=== PATIENT | male | born 1960 | race Caucasian/White ===

== ENCOUNTER 2016-09-25 17:06 | Inpatient (IN) | payer OTHER ==
[~2016-09-25] VITALS: Ht 170.2 cm; Wt 118.6 kg
[2016-09-25] VITALS (7 sets, daily range): BP systolic 140–165; BP diastolic 77–106
--- NOTE | ~2016-09-25 | CON ---
[place], [place] REPORT OF CONSULTATION NAME: CHRISTOFER GIRON UNIT #: [id number] ROOM: [facility] DOCTOR: HERNAN BROWN MD BIRTHDATE: [birth year] DOS: 09/26/2016 HISTORY OF PRESENT ILLNESS: A 56-year-old patient who has presented with chief complaint of epigastric abdominal pain, complaining that he saw some blood in the stool, not feeling well. He was nearly passing out that afternoon and said he had diarrhea, dark tarry stool. The patient had to be admitted for definitive assessment. Through this Emergency system, he was assessed and a panel of blood work was done. INR was 1.3, PT 13. CBC differential white blood cells 7, H and H of 11 and 34, microcytic indices. Electrolytes balanced. Magnesium 1.2 has been addressed. Bilirubin 1.2. AST of 68, ALT of 30. Chest x-ray was no acute process. H and H was reassessed at 10 and 29 and on further reassessment, dropped to 9 and 27. So obviously he has been having some degree of bleeding with thrombocytopenia up to 70. His comprehensive metabolic panel otherwise reassessed. PAST MEDICAL HISTORY: Associated with hepatitis C, alcohol dependency, proteinuria, cocaine abuse, recreational drugs. PAST SURGICAL HISTORY: Colon resection, laparotomy, right leg herniorraphy and eye correction on the right side. SOCIAL HISTORY: Smoker and alcohol consumer and recreational drug use. FAMILY HISTORY: Noncontributory, associated coronary artery disease, diabetes, and hypertension. REVIEW OF SYSTEMS: HEENT: Denies double vision, blurred vision. RESPIRATORY: Denies acute shortness of breath. CARDIOVASCULAR: Denies acute chest pain. DIGESTIVE SYSTEM: Abdominal cramps, black tarry stool. PHYSICAL EXAMINATION: VITAL SIGNS: Stable. HEENT: Benign. Right eye appears to be narrower in angulation in the lateral angle of it. Mouth and buccal mucosa benign. NECK: Supple, no thyromegaly, no cervical lymphadenopathy. CHEST: Symmetric anatomy, equal expansion. No wheeze, no rhonchi. HEART: Normal sinus rhythm, no gallop, no murmur. ABDOMEN: Obese, large, soft. No hepato-organomegaly. Bowel sounds present. EXTREMITIES: No cyanosis. No pedal edema. NEUROLOGIC: Alert, oriented to time, place, person. IMPRESSION: Black tarry stool, history of hepatitis C, alcoholic liver disease, recreational drugs history. Other adjunctive diagnoses as outlined in paragraph of past medical, surgical history, anemia, drop in H and H, thrombocytopenia, abnormal liver function tests all has been recognized. PLAN AND DISCUSSION: We are going to organize an EGD. [place], [place] REPORT OF CONSULTATION NAME: CHRISTOFER GIRON UNIT #: [id number] ROOM: [facility] DOCTOR: HERNAN BROWN MD BIRTHDATE: [birth year] Laboratories reviewed. Records reviewed. Data reviewed. HERNAN BROWN MD CM:CONSTR:REPORT OF CONSULTATION 1650 11/09/16 0951 interface
--- NOTE | ~2016-09-25 | O ---
[place], [place] OPERATIVE NOTE NAME: CHRISTOFER GIRON UNIT #: [id number] ROOM: [facility] DOCTOR: KEVIN LEMOS,HERNAN BIRTHDATE: [birth year] DOS: 09/26/2016 INDICATIONS: A 56-year-old patient who was presented with chief complaint of black tarry stool, undergoing investigation. The patient with a history of hepatitis C, history of recreational drugs, history of alcohol. PROCEDURE: Today's procedure part of investigation is panendoscopy plus biopsy. PREMEDICATION: Versed and Diprivan. SCOPE: Olympus forward-viewing gastroscope Q10 video. REPORT: After putting the patient in the left lateral position and after application of lubricant to the scope, the scope was introduced. Thereafter, under direct visualization, I advanced through the length of esophagus without difficulty. Distal esophagitis, small hiatal hernia noticed. Gastric pouch was entered. Gastritis seen. Duodenal bulb gastritis seen. Multi antral ulcers were noticed, some are very deeply punctated. Biopsy from margin of 1 was obtained. Duodenitis noted. The patient extubated, tolerated the procedure well. IMPRESSION: Multiple antral ulcerations, small hiatal hernia, gastritis, duodenitis. PLAN AND DISCUSSION: Regular diet, Protonix 40 mg daily and clinical reassessment. Thank you very much indeed. HERNAN BROWN MD CM:OPRECORD:OPERATIVE NOTE 1833 HERNAN BROWN MD 09/26/16 2238 interface
[~2016-09-25 17:06] MED LIST: AMBIEN10 M1 PO; ATIVAN1 MG PO; BACTRIM DS 8001 TA1 PO; BLOOD PRESSURE MED; CELEXA10 MG PO; FLOMAX0.4 MG PO; GEODON20 MG PO; HYDROCHLOROTH12.5 M1 PO; IBU800 M1 PO; ISOSORBIDE MONO60 MG PO; KEFLEX500 MG PO; LEVAQUIN750 MG PO; LISINOPRIL AND1 TA2 PO; LISINOPRIL/HCTZ1 TA3 PO; LISINOPRIL10 MG PO; LISINOPRIL20 MG PO; METOPROLOL SR50 MG PO; MIRTAZAPINE15 M2 PO; MOTRIN600 MG PO; NASCOBAL500 MCG/01 NAS; NKHM; OLANZAPINE7.5 M1 PO; PROAIR HFA8.5 GM INH; TRAZODO50 MG PO; VICODIN 5/500 505 MG PO; VISTARIL25 M1 PO; VITAMIN D50000 I3 PO; ZYVOX600 MG PO; Zostrix 0.1% T
[2016-09-25 18:03] LABS: HEMOGLOBIN 11.5 g/dl (14.0-18.0); MEAN CELL VOLUME 113.3 fl (80.0-94.0); MEAN CORPUSCULAR HGB 38.3 pg (27.0-31.0); MEAN CORPUSCULAR HGB CONC 33.8 g/dl (33.0-37.0); MEAN PLATELET VOLUME 10.5 fl (9.6-12.3); PLATELET COUNT AUTOMATED 94 10*3/uL (130-400); WHITE BLOOD COUNT 7.7 10*3/uL (4.8-10.8)
[2016-09-25 18:18] LABS: INTERNATIONAL NORM RATIO 1.3 (2.0-3.5); PROTHROMBIN TIME 13.8 SECONDS (9.0-12.4)
[2016-09-25 18:21] LABS: ALBUMIN 3.4 gm/dl (3.1-4.5); ALKALINE PHOSPHATASE 77 U/L (45-117); BILIRUBIN, TOTAL 1.2 mg/dl (0.2-1.0); BUN 26 mg/dl (7-24); CARBON DIOXIDE 25 mmol/L (21-32); CHLORIDE 102 mmol/L (98-107); EST GLOM FILT AFRICAN AMERICAN > 60 ml/min; GLUCOSE 125 mg/dL (65-99); MAGNESIUM 1.2 mg/dL (1.5-2.1); SGOT/AST 68 IU/L (3-35); SGPT/ALT 30 U/L (12-78); SODIUM 141 mmol/L (136-145); TOTAL PROTEIN 8.1 gm/dL (6.4-8.2); TROPONIN I 0.036 ng/ml (<0.5)
[2016-09-25 18:22] LABS: LYMPHOCYTE # 0.5 10*3/uL (1.3-4.4); MONOCYTE # 0.2 10*3/uL (0.1-1.0); NEUTROPHIL # 7.1 10*3/uL (2.3-7.9); NEUTROPHILS 92 % (47-73); TOTAL CELLS COUNTED 100 #CELLS
[2016-09-25 18:23] LABS: PLATELET SUFFICIENCY LOW (NORMAL)
[2016-09-26] VITALS (7 sets, daily range): BP systolic 95–138; BP diastolic 61–98
[2016-09-26 00:18] LABS: HEMATOCRIT 29.7 % (42.0-52.0); HEMOGLOBIN 10.1 g/dl (14.0-18.0)
[2016-09-26 00:35] LABS: CKMB 4.8 ng/ml (0.5-3.6); TROPONIN I 0.055 ng/ml (<0.5)
[2016-09-26 05:25] LABS: BILIRUBIN NEGATIVE (NEGATIVE); BLOOD 2+ (NEGATIVE); CLARITY SL CLOUDY (CLEAR); COLOR YELLOW (YELLOW); GLUCOSE NEGATIVE (NEGATIVE); KETONE TRACE (NEGATIVE); LEUKO ESTERASE NEGATIVE (NEGATIVE); NITRITE NEGATIVE (NEGATIVE); PROTEIN 1+ (NEGATIVE); SPECIFIC GRAVITY 1.015 (1.005-1.030); UROBILINOGEN 0.2 E.U./dl (0.2-1.0)
[2016-09-26 05:35] LABS: RBC 51-100 rbc/hpf (0-2)
[2016-09-26 05:36] LABS: BACTERIA 2+; URINE REFLEX COMMENT YES (NO)
[2016-09-26 06:33] LABS: HEMATOCRIT 27.2 % (42.0-52.0); HEMOGLOBIN 9.3 g/dl (14.0-18.0); MEAN CELL VOLUME 113.8 fl (80.0-94.0); MEAN CORPUSCULAR HGB 38.9 pg (27.0-31.0); MEAN CORPUSCULAR HGB CONC 34.2 g/dl (33.0-37.0); MEAN PLATELET VOLUME 10.8 fl (9.6-12.3); PLATELET COUNT AUTOMATED 70 10*3/uL (130-400); RED BLOOD COUNT 2.39 10*6/uL (4.50-5.90); RED CELL DISTRI WIDTH 16.6 % (0-14.5); WHITE BLOOD COUNT 5.8 10*3/uL (4.8-10.8)
[2016-09-26 06:37] LABS: CKMB 4.1 ng/ml (0.5-3.6); TROPONIN I 0.048 ng/ml (<0.5)
[2016-09-26 06:53] LABS: INTERNATIONAL NORM RATIO 1.3 (2.0-3.5); PROTHROMBIN TIME 13.8 SECONDS (9.0-12.4)
[2016-09-26 07:10] LABS: ALBUMIN 2.9 gm/dl (3.1-4.5); ALKALINE PHOSPHATASE 59 U/L (45-117); BILIRUBIN, TOTAL 1.1 mg/dl (0.2-1.0); BUN 32 mg/dl (7-24); CARBON DIOXIDE 28 mmol/L (21-32); CHLORIDE 106 mmol/L (98-107); CHOLESTEROL 104 mg/dL (<200); EST GLOM FILT AFRICAN AMERICAN > 60 ml/min; FREE T4 0.82 ng/dl (0.76-1.46); GLUCOSE 87 mg/dL (65-99); HDL CHOLESTEROL 59 mg/dl (40-60); LDL CHOLESTEROL 33 mg/dL (9-159); MAGNESIUM 1.9 mg/dL (1.5-2.1); PHOSPHOROUS 1.6 mg/dL (2.5-4.9); POTASSIUM 4.3 mmol/L (3.5-5.1); SGOT/AST 59 IU/L (3-35); SGPT/ALT 25 U/L (12-78); SODIUM 142 mmol/L (136-145); THYROID STIM HORMONE (HS) 0.644 uIU/ml (0.358-4.75); TOTAL PROTEIN 6.9 gm/dL (6.4-8.2); TRIGLYCERIDES 61 mg/dl (<150); VLDL CHOLESTEROL 12 mg/dL (6-40)
[2016-09-26 07:12] LABS: HEMOGLOBIN A1c 4.4 % (4.8-5.6)
[2016-09-26 07:23] LABS: BASOPHIL # 0.1 10*3/uL (0-0.1); BASOPHILS 2 % (0-1); LYMPHOCYTE # 0.8 10*3/uL (1.3-4.4); MONOCYTE # 0.2 10*3/uL (0.1-1.0); NEUTROPHIL # 4.8 10*3/uL (2.3-7.9); NEUTROPHILS 82 % (47-73); TOTAL CELLS COUNTED 100 #CELLS
[2016-09-26 07:24] LABS: PLATELET SUFFICIENCY LOW (NORMAL); POLYCHROMASIA SLIGHT
[2016-09-26 08:43] LABS: FOLIC ACID 2.6 ng/mL (>5.38)
[2016-09-26 12:06] LABS: CKMB 3.2 ng/ml (0.5-3.6); TROPONIN I 0.041 ng/ml (<0.5)
[2016-09-27] VITALS: BP 130/84
[2016-09-27 04:00] VITALS: BP 145/91
[2016-09-27 04:28] LABS: HEMATOCRIT 25.3 % (42.0-52.0); HEMOGLOBIN 8.5 g/dl (14.0-18.0); MEAN CORPUSCULAR HGB 38.6 pg (27.0-31.0); MEAN CORPUSCULAR HGB CONC 33.6 g/dl (33.0-37.0); MEAN PLATELET VOLUME 10.5 fl (9.6-12.3); PLATELET COUNT AUTOMATED 70 10*3/uL (130-400); RED CELL DISTRI WIDTH 16.9 % (0-14.5); WHITE BLOOD COUNT 6.1 10*3/uL (4.8-10.8)
[2016-09-27 04:37] LABS: INTERNATIONAL NORM RATIO 1.3 (2.0-3.5); PROTHROMBIN TIME 13.6 SECONDS (9.0-12.4)
[2016-09-27 04:40] LABS: BUN 23 mg/dl (7-24); CARBON DIOXIDE 28 mmol/L (21-32); CHLORIDE 106 mmol/L (98-107); EST GLOM FILT AFRICAN AMERICAN > 60 ml/min; GLUCOSE 83 mg/dL (65-99); POTASSIUM 4.2 mmol/L (3.5-5.1); SODIUM 142 mmol/L (136-145)
[2016-09-27 04:50] LABS: EOSINOPHIL # 0.1 10*3/uL (0-0.4); EOSINOPHILS 1 % (1-4); LYMPHOCYTE # 1.5 10*3/uL (1.3-4.4); MONOCYTE # 0.1 10*3/uL (0.1-1.0); NEUTROPHIL # 4.5 10*3/uL (2.3-7.9); NEUTROPHILS 74 % (47-73); PLATELET SUFFICIENCY LOW (NORMAL); TOTAL CELLS COUNTED 100 #CELLS
[2016-09-27 04:51] LABS: POLYCHROMASIA SLIGHT
[2016-09-27 08:00] VITALS: BP 134/90
[2016-09-27 12:00] VITALS: BP 142/87
[2016-09-27 16:00] VITALS: BP 115/81
[2016-09-27 20:00] VITALS: BP 139/86
[2016-09-28] VITALS: BP 116/79
[2016-09-28 04:00] VITALS: BP 131/83
[2016-09-28 05:54] LABS: BUN 15 mg/dl (7-24); CARBON DIOXIDE 27 mmol/L (21-32); CHLORIDE 103 mmol/L (98-107); EST GLOM FILT AFRICAN AMERICAN > 60 ml/min; GLUCOSE 89 mg/dL (65-99); POTASSIUM 3.7 mmol/L (3.5-5.1); SODIUM 138 mmol/L (136-145)
[2016-09-28 06:04] LABS: HEMOGLOBIN 8.1 g/dl (14.0-18.0); MEAN CELL VOLUME 113.7 fl (80.0-94.0); MEAN CORPUSCULAR HGB 38.4 pg (27.0-31.0); MEAN CORPUSCULAR HGB CONC 33.8 g/dl (33.0-37.0); MEAN PLATELET VOLUME 11.1 fl (9.6-12.3); PLATELET COUNT AUTOMATED 69 10*3/uL (130-400); RED BLOOD COUNT 2.11 10*6/uL (4.50-5.90); RED CELL DISTRI WIDTH 16.1 % (0-14.5); WHITE BLOOD COUNT 5.5 10*3/uL (4.8-10.8)
[2016-09-28 06:24] LABS: INTERNATIONAL NORM RATIO 1.2 (2.0-3.5); PROTHROMBIN TIME 12.6 SECONDS (9.0-12.4)
[2016-09-28 07:42] LABS: EOSINOPHIL # 0.1 10*3/uL (0-0.4); EOSINOPHILS 1 % (1-4); LYMPHOCYTE # 1.2 10*3/uL (1.3-4.4); MONOCYTE # 0.1 10*3/uL (0.1-1.0); NEUTROPHIL # 4.2 10*3/uL (2.3-7.9); NEUTROPHILS 77 % (47-73); PLATELET SUFFICIENCY LOW (NORMAL); POLYCHROMASIA SLIGHT; TOTAL CELLS COUNTED 100 #CELLS
[2016-09-28 08:00] VITALS: BP 141/86
[2016-09-28 08:17] LABS: HEPATITIS C VIRUS ANTIBODY >11.0 s/co (0.0-0.9)
[2016-09-28 12:00] VITALS: BP 124/79
[2016-09-28 16:00] VITALS: BP 124/79
[2016-09-29] VITALS: BP 126/76
[2016-09-29 05:20] LABS: HEMATOCRIT 24.5 % (42.0-52.0); HEMOGLOBIN 8.5 g/dl (14.0-18.0); MEAN CELL VOLUME 112.9 fl (80.0-94.0); MEAN CORPUSCULAR HGB 39.2 pg (27.0-31.0); MEAN CORPUSCULAR HGB CONC 34.7 g/dl (33.0-37.0); MEAN PLATELET VOLUME 11.4 fl (9.6-12.3); PLATELET COUNT AUTOMATED 79 10*3/uL (130-400); RED BLOOD COUNT 2.17 10*6/uL (4.50-5.90); RED CELL DISTRI WIDTH 15.7 % (0-14.5); WHITE BLOOD COUNT 5.1 10*3/uL (4.8-10.8)
[2016-09-29 05:49] LABS: BUN 13 mg/dl (7-24); CARBON DIOXIDE 26 mmol/L (21-32); CHLORIDE 99 mmol/L (98-107); EST GLOM FILT AFRICAN AMERICAN > 60 ml/min; GLUCOSE 150 mg/dL (65-99); POTASSIUM 3.8 mmol/L (3.5-5.1); SODIUM 136 mmol/L (136-145)
[2016-09-29 07:21] LABS: LYMPHOCYTE # 0.2 10*3/uL (1.3-4.4); NEUTROPHIL # 4.9 10*3/uL (2.3-7.9); NEUTROPHILS 97 % (47-73); PLATELET SUFFICIENCY LOW (NORMAL); TOTAL CELLS COUNTED 100 #CELLS
[2016-09-29 08:00] VITALS: BP 150/86
[2016-09-29] MEDS ORDERED: WALKER (13:31)
[2016-09-29] MEDS ORDERED: COREG3.125 MG PO (13:31)
[2016-09-29] MEDS ORDERED: PROTONIX40 MG PO (13:31)
[2016-09-29] MEDS ORDERED: PREDNISONE10 MG PO (13:31)
[2016-09-29] MEDS ORDERED: PROVENTIL0.09 MG/A1 INH (13:31)
== END 2016-09-29 15:30 | disposition home or self-care (01) | DRG 377 ==
LOC: ED 17:06 → ICCU 18:40 → EDHOLD 18:40 → ICCU 19:04
PROVIDERS: Internal Medicine; Registered Nurse; Student in an Organized Health Care Education/Training Program
PROC: 0DB68ZX Excision of Stomach, Via Natural or Artificial Opening Endoscopic, Diagnostic (ICD-10-PCS; principal; 2016-09-26)
DX: K92.2 Gastrointestinal hemorrhage, unspecified (principal); E43 Unspecified severe protein-calorie malnutrition; J96.00 Acute respiratory failure, unspecified whether with hypoxia or hypercapnia; R65.10 Systemic inflammatory response syndrome (SIRS) of non-infectious origin without acute organ dysfunction; D69.6 Thrombocytopenia, unspecified; E83.42 Hypomagnesemia; Z68.41 Body mass index [BMI] 40.0-44.9, adult; D62 Acute posthemorrhagic anemia; K29.50 Unspecified chronic gastritis without bleeding; I10 Essential (primary) hypertension; K25.7 Chronic gastric ulcer without hemorrhage or perforation; K44.9 Diaphragmatic hernia without obstruction or gangrene; K29.80 Duodenitis without bleeding; F17.210 Nicotine dependence, cigarettes, uncomplicated; R73.9 Hyperglycemia, unspecified; I45.81 Long QT syndrome; E66.01 Morbid (severe) obesity due to excess calories; E53.8 Deficiency of other specified B group vitamins; E55.9 Vitamin D deficiency, unspecified; I44.0 Atrioventricular block, first degree; R74.0 Nonspecific elevation of levels of transaminase and lactic acid dehydrogenase [LDH]; D72.810 Lymphocytopenia; E83.39 Other disorders of phosphorus metabolism; H54.41 Blindness, right eye, normal vision left eye; B18.2 Chronic viral hepatitis C; Z98.890 Other specified postprocedural states; Z79.899 Other long term (current) drug therapy; Z80.0 Family history of malignant neoplasm of digestive organs; Z80.42 Family history of malignant neoplasm of prostate; Z83.3 Family history of diabetes mellitus; Z82.49 Family history of ischemic heart disease and other diseases of the circulatory system

== ENCOUNTER → 2017-01-13 | Outpatient (CLI) | payer OTHER ==
[~2017-01-13] MED LIST changes: +COREG3.125 MG PO; +PREDNISONE10 MG PO; +PROTONIX40 MG PO; +PROVENTIL0.09 MG/A1 INH; +WALKER
[2017-01-13 14:16] LABS: BASO # 0.1 10*3/uL (0.0-0.1); EOS # 0.2 10*3/uL (0.0-0.4); EOS % 2.1 % (1.0-4.0); HEMATOCRIT 38.5 % (42.0-52.0); IG # 0.1 10*3/uL (0.0-0.1); LYMPH # 1.7 10*3/uL (1.3-4.4); LYMPH % 23.5 % (27.0-41.0); MEAN CELL VOLUME 106.9 fl (80.0-94.0); MEAN CORPUSCULAR HGB 36.1 pg (27.0-31.0); MEAN CORPUSCULAR HGB CONC 33.8 g/dl (33.0-37.0); MEAN PLATELET VOLUME 10.6 fl (9.6-12.3); MONO # 0.6 10*3/uL (0.1-1.0); MONO % 8.5 % (3.0-9.0); NEUT # 4.7 10*3/uL (2.3-7.9); NEUT % 64.1 % (47.0-73.0); PLATELET COUNT AUTOMATED 237 10*3/uL (130-400); RED CELL DISTRI WIDTH 14.4 % (0-14.5); WHITE BLOOD COUNT 7.3 10*3/uL (4.8-10.8)
[2017-01-13 14:37] LABS: ALBUMIN 3.2 gm/dl (3.1-4.5); ALKALINE PHOSPHATASE 114 U/L (45-117); BILIRUBIN, TOTAL 0.6 mg/dl (0.2-1.0); BUN 6 mg/dl (7-24); CARBON DIOXIDE 27 mmol/L (21-32); CHLORIDE 105 mmol/L (98-107); EST GLOM FILT AFRICAN AMERICAN > 60 ml/min; GLUCOSE 103 mg/dL (65-99); POTASSIUM 4.4 mmol/L (3.5-5.1); SGOT/AST 74 IU/L (3-35); SGPT/ALT 34 U/L (12-78); SODIUM 140 mmol/L (136-145)
== END | disposition home or self-care (01) ==
LOC: LAB 13:42
PROVIDERS: Family Medicine
DX: I10 Essential (primary) hypertension (principal)

== ENCOUNTER 2017-07-12 07:36 | Emergency (ER) | payer MEDICAID ==
[~2017-07-12] VITALS: Ht 172.7 cm; Wt 111.1 kg
[2017-07-12 07:36] VITALS: BP 106/71
[2017-07-12 08:07] LABS: HEMATOCRIT 34.9 % (42.0-52.0); HEMOGLOBIN 11.9 g/dl (14.0-18.0); MEAN CELL VOLUME 111.9 fl (80.0-94.0); MEAN CORPUSCULAR HGB 38.1 pg (27.0-31.0); MEAN CORPUSCULAR HGB CONC 34.1 g/dl (33.0-37.0); PLATELET COUNT AUTOMATED 243 10*3/uL (130-400); RED BLOOD COUNT 3.12 10*6/uL (4.50-5.90); RED CELL DISTRI WIDTH 14.6 % (0-14.5); WHITE BLOOD COUNT 6.2 10*3/uL (4.8-10.8)
[2017-07-12 08:15] LABS: ACT PARTIAL THROMBO TIME 27.6 SECONDS (20.8-31.5); INTERNATIONAL NORM RATIO 1.1 (2.0-3.5)
[2017-07-12 08:26] LABS: ALBUMIN 3.3 gm/dl (3.1-4.5); ALKALINE PHOSPHATASE 130 U/L (45-117); BUN 12 mg/dl (7-24); CHLORIDE 106 mmol/L (98-107); CREATININE 0.91 mg/dL (0.70-1.30); POTASSIUM 4.1 mmol/L (3.5-5.1); SGOT/AST 43 IU/L (3-35); SGPT/ALT 27 U/L (12-78); SODIUM 141 mmol/L (136-145); TOTAL PROTEIN 7.8 gm/dL (6.4-8.2)
[2017-07-12 08:32] LABS: BASOPHILS 2 % (0-1); PLATELET SUFFICIENCY NORMAL (NORMAL); TOTAL CELLS COUNTED 100 #CELLS
== END 2017-07-12 08:35 | disposition left against medical advice (07) ==
LOC: ED 07:36 → EDHOLD 07:58 → ED 07:58
PROVIDERS: Emergency Medicine
DX: G89.29 Other chronic pain (principal); M25.552 Pain in left hip; F10.129 Alcohol abuse with intoxication, unspecified; I10 Essential (primary) hypertension; F17.200 Nicotine dependence, unspecified, uncomplicated; Z86.19 Personal history of other infectious and parasitic diseases

== ENCOUNTER 2017-10-14 04:51 | Emergency (ER) | payer MEDICAID ==
[~2017-10-14] VITALS: Ht 172.7 cm; Wt 90.7 kg
[2017-10-14 05:35] LABS: BASO % 0.7 % (0.0-1.0); EOS # 0.4 10*3/uL (0.0-0.4); EOS % 6.3 % (1.0-4.0); HEMATOCRIT 40.4 % (42.0-52.0); HEMOGLOBIN 13.9 g/dl (14.0-18.0); LYMPH # 2.8 10*3/uL (1.3-4.4); LYMPH % 45.8 % (27.0-41.0); MEAN CELL VOLUME 105.2 fl (80.0-94.0); MEAN CORPUSCULAR HGB 36.2 pg (27.0-31.0); MEAN CORPUSCULAR HGB CONC 34.4 g/dl (33.0-37.0); MEAN PLATELET VOLUME 10.7 fl (9.6-12.3); MONO # 0.3 10*3/uL (0.1-1.0); MONO % 5.3 % (3.0-9.0); NEUT # 2.5 10*3/uL (2.3-7.9); NEUT % 41.7 % (47.0-73.0); PLATELET COUNT AUTOMATED 182 10*3/uL (130-400); RED BLOOD COUNT 3.84 10*6/uL (4.50-5.90); RED CELL DISTRI WIDTH 12.9 % (0-14.5)
[2017-10-14 06:20] LABS: ALBUMIN 3.7 gm/dl (3.1-4.5); ALKALINE PHOSPHATASE 100 U/L (45-117); BUN 6 mg/dl (7-24); CHLORIDE 97 mmol/L (98-107); CREATININE 0.87 mg/dL (0.70-1.30); POTASSIUM 3.3 mmol/L (3.5-5.1); SGOT/AST 92 IU/L (3-35); SGPT/ALT 40 U/L (12-78); SODIUM 138 mmol/L (136-145); TOTAL PROTEIN 8.9 gm/dL (6.4-8.2)
[2017-10-14 06:22] LABS: ACETAMINOPHEN (TYLENOL) < 2.0 ug/ml (10-30)
[2017-10-14 07:30] LABS: BILIRUBIN NEGATIVE (NEGATIVE); BLOOD NEGATIVE (NEGATIVE); CLARITY CLEAR (CLEAR); COLOR YELLOW (YELLOW); GLUCOSE NEGATIVE (NEGATIVE); KETONE NEGATIVE (NEGATIVE); LEUKO ESTERASE NEGATIVE (NEGATIVE); NITRITE NEGATIVE (NEGATIVE); SPECIFIC GRAVITY <= 1.005 (1.005-1.030)
[2017-10-14 07:36] LABS: MUCOUS TRACE
[2017-10-14 07:42] LABS: URINE AMPHETAMINES < 1000 (1000ng/ml); URINE BARBITURATES < 200 (200ng/ml); URINE BENZODIAZEPINES < 200 (200ng/ml); URINE CANNABINOIDS (THC) < 50 (50ng/ml); URINE COCAINE < 300 (300ng/ml); URINE METHADONE < 300 (300ng/ml); URINE OPIATES < 300 (300ng/ml)
[2017-10-14 07:44] LABS: URINE PHENCYCLIDINE < 25 (25ng/ml)
== END 2017-10-14 19:24 | disposition home or self-care (01) ==
LOC: ED 04:51
PROVIDERS: Emergency Medicine Emergency Medical Services
DX: F10.220 Alcohol dependence with intoxication, uncomplicated (principal); F32.9 Major depressive disorder, single episode, unspecified; F41.9 Anxiety disorder, unspecified; R45.851 Suicidal ideations; F17.200 Nicotine dependence, unspecified, uncomplicated; F14.10 Cocaine abuse, uncomplicated; E66.9 Obesity, unspecified; I10 Essential (primary) hypertension; G89.29 Other chronic pain; M25.552 Pain in left hip; Z79.899 Other long term (current) drug therapy; Z98.890 Other specified postprocedural states; Y90.9 Presence of alcohol in blood, level not specified

== ENCOUNTER 2017-10-15 22:09 | Emergency (ER) | payer MEDICAID ==
[~2017-10-15] VITALS: Ht 172.7 cm; Wt 90.7 kg
[2017-10-15 22:33] LABS: BASO % 0.5 % (0.0-1.0); EOS # 0.2 10*3/uL (0.0-0.4); HEMATOCRIT 39.5 % (42.0-52.0); HEMOGLOBIN 14.1 g/dl (14.0-18.0); LYMPH # 2.3 10*3/uL (1.3-4.4); LYMPH % 36.3 % (27.0-41.0); MEAN CELL VOLUME 103.4 fl (80.0-94.0); MEAN CORPUSCULAR HGB 36.9 pg (27.0-31.0); MEAN CORPUSCULAR HGB CONC 35.7 g/dl (33.0-37.0); MEAN PLATELET VOLUME 10.7 fl (9.6-12.3); MONO # 0.4 10*3/uL (0.1-1.0); MONO % 5.7 % (3.0-9.0); NEUT # 3.5 10*3/uL (2.3-7.9); NEUT % 54.3 % (47.0-73.0); PLATELET COUNT AUTOMATED 158 10*3/uL (130-400); RED BLOOD COUNT 3.82 10*6/uL (4.50-5.90); RED CELL DISTRI WIDTH 13.1 % (0-14.5); WHITE BLOOD COUNT 6.4 10*3/uL (4.8-10.8)
[2017-10-15 22:47] LABS: ALBUMIN 3.7 gm/dl (3.1-4.5); ALKALINE PHOSPHATASE 107 U/L (45-117); BUN 4 mg/dl (7-24); CHLORIDE 98 mmol/L (98-107); CREATININE 0.95 mg/dL (0.70-1.30); POTASSIUM 3.3 mmol/L (3.5-5.1); SGOT/AST 140 IU/L (3-35); SGPT/ALT 54 U/L (12-78); SODIUM 138 mmol/L (136-145); TOTAL PROTEIN 8.7 gm/dL (6.4-8.2)
[2017-10-15 22:49] LABS: ACETAMINOPHEN (TYLENOL) < 2.0 ug/ml (10-30)
[2017-10-16 05:39] LABS: BILIRUBIN 1+ (NEGATIVE); BLOOD NEGATIVE (NEGATIVE); CLARITY SL CLOUDY (CLEAR); COLOR YELLOW (YELLOW); GLUCOSE NEGATIVE (NEGATIVE); KETONE TRACE (NEGATIVE); LEUKO ESTERASE NEGATIVE (NEGATIVE); NITRITE NEGATIVE (NEGATIVE); PH 6.5 (5.0-9.0); SPECIFIC GRAVITY 1.015 (1.005-1.030); UROBILINOGEN >= 8.0 E.U./dl (0.2-1.0)
[2017-10-16 05:46] LABS: BACTERIA 1+
[2017-10-16 05:50] LABS: URINE AMPHETAMINES < 1000 (1000ng/ml); URINE BARBITURATES < 200 (200ng/ml); URINE BENZODIAZEPINES < 200 (200ng/ml); URINE CANNABINOIDS (THC) < 50 (50ng/ml); URINE COCAINE > 300 (300ng/ml); URINE METHADONE < 300 (300ng/ml); URINE OPIATES < 300 (300ng/ml)
[2017-10-16 05:53] LABS: URINE PHENCYCLIDINE < 25 (25ng/ml)
[2017-10-16 07:50] LABS: TROPONIN I < 0.015 ng/ml (<0.045)
== END 2017-10-16 11:33 | disposition home or self-care (01) ==
LOC: ED 22:09
PROVIDERS: Emergency Medicine; Student in an Organized Health Care Education/Training Program
DX: F10.229 Alcohol dependence with intoxication, unspecified (principal); R45.851 Suicidal ideations; R45.1 Restlessness and agitation; F32.9 Major depressive disorder, single episode, unspecified; F41.9 Anxiety disorder, unspecified; F14.10 Cocaine abuse, uncomplicated; F17.200 Nicotine dependence, unspecified, uncomplicated; F19.10 Other psychoactive substance abuse, uncomplicated; E66.9 Obesity, unspecified; G47.00 Insomnia, unspecified; I10 Essential (primary) hypertension; G89.29 Other chronic pain; M25.552 Pain in left hip; Z98.890 Other specified postprocedural states; Z90.89 Acquired absence of other organs; Y90.9 Presence of alcohol in blood, level not specified

== ENCOUNTER 2017-10-17 08:03 | Emergency (ER) | payer MEDICAID ==
[~2017-10-17] VITALS: Ht 177.8 cm; Wt 116.6 kg
[2017-10-17 08:26] LABS: BASO % 0.4 % (0.0-1.0); EOS # 0.5 10*3/uL (0.0-0.4); EOS % 6.3 % (1.0-4.0); HEMATOCRIT 37.2 % (42.0-52.0); HEMOGLOBIN 12.8 g/dl (14.0-18.0); LYMPH # 3.1 10*3/uL (1.3-4.4); LYMPH % 43.3 % (27.0-41.0); MEAN CELL VOLUME 104.2 fl (80.0-94.0); MEAN CORPUSCULAR HGB 35.9 pg (27.0-31.0); MEAN CORPUSCULAR HGB CONC 34.4 g/dl (33.0-37.0); MEAN PLATELET VOLUME 10.7 fl (9.6-12.3); MONO # 0.5 10*3/uL (0.1-1.0); MONO % 6.5 % (3.0-9.0); NEUT # 3.1 10*3/uL (2.3-7.9); NEUT % 43.4 % (47.0-73.0); PLATELET COUNT AUTOMATED 133 10*3/uL (130-400); RED BLOOD COUNT 3.57 10*6/uL (4.50-5.90); RED CELL DISTRI WIDTH 13.4 % (0-14.5); WHITE BLOOD COUNT 7.1 10*3/uL (4.8-10.8)
[2017-10-17 08:41] LABS: BUN 6 mg/dl (7-24); CHLORIDE 95 mmol/L (98-107); POTASSIUM 2.8 mmol/L (3.5-5.1); SODIUM 136 mmol/L (136-145)
[2017-10-17 08:47] LABS: ACETAMINOPHEN (TYLENOL) < 2.0 ug/ml (10-30)
[2017-10-17 09:30] LABS: BILIRUBIN 1+ (NEGATIVE); BLOOD NEGATIVE (NEGATIVE); CLARITY SL CLOUDY (CLEAR); COLOR YELLOW (YELLOW); GLUCOSE NEGATIVE (NEGATIVE); KETONE TRACE (NEGATIVE); LEUKO ESTERASE 1+ (NEGATIVE); NITRITE NEGATIVE (NEGATIVE); SPECIFIC GRAVITY 1.015 (1.005-1.030)
[2017-10-17 09:39] LABS: BACTERIA 1+; MUCOUS 1+; WBC 16-20 wbc/hpf (0-5)
[2017-10-17 09:40] LABS: URINE AMPHETAMINES < 1000 (1000ng/ml); URINE BARBITURATES < 200 (200ng/ml); URINE BENZODIAZEPINES > 200 (200ng/ml); URINE CANNABINOIDS (THC) < 50 (50ng/ml); URINE COCAINE < 300 (300ng/ml); URINE METHADONE < 300 (300ng/ml); URINE OPIATES < 300 (300ng/ml); URINE PHENCYCLIDINE < 25 (25ng/ml)
[2017-10-17 17:31] LABS: BASO % 0.4 % (0.0-1.0); EOS # 0.5 10*3/uL (0.0-0.4); EOS % 6.6 % (1.0-4.0); HEMATOCRIT 36.6 % (42.0-52.0); HEMOGLOBIN 12.9 g/dl (14.0-18.0); LYMPH # 2.3 10*3/uL (1.3-4.4); LYMPH % 29.9 % (27.0-41.0); MEAN CELL VOLUME 104.3 fl (80.0-94.0); MEAN CORPUSCULAR HGB 36.8 pg (27.0-31.0); MEAN CORPUSCULAR HGB CONC 35.2 g/dl (33.0-37.0); MEAN PLATELET VOLUME 10.7 fl (9.6-12.3); MONO # 0.6 10*3/uL (0.1-1.0); MONO % 7.2 % (3.0-9.0); NEUT # 4.3 10*3/uL (2.3-7.9); NEUT % 55.8 % (47.0-73.0); PLATELET COUNT AUTOMATED 124 10*3/uL (130-400); RED BLOOD COUNT 3.51 10*6/uL (4.50-5.90); RED CELL DISTRI WIDTH 13.3 % (0-14.5); WHITE BLOOD COUNT 7.8 10*3/uL (4.8-10.8)
[2017-10-17 17:52] LABS: BUN 8 mg/dl (7-24); CHLORIDE 94 mmol/L (98-107); CREATININE 2.34 mg/dL (0.70-1.30); SODIUM 132 mmol/L (136-145)
[2017-10-17 17:59] LABS: POTASSIUM 3.8 mmol/L (3.5-5.1)
[2017-10-17 18:00] LABS: ACETAMINOPHEN (TYLENOL) < 2.0 ug/ml (10-30)
[2017-10-17 18:44] LABS: URINE AMPHETAMINES < 1000 (1000ng/ml); URINE BARBITURATES < 200 (200ng/ml); URINE BENZODIAZEPINES < 200 (200ng/ml); URINE CANNABINOIDS (THC) < 50 (50ng/ml); URINE COCAINE < 300 (300ng/ml); URINE METHADONE < 300 (300ng/ml); URINE OPIATES < 300 (300ng/ml)
[2017-10-17 18:46] LABS: URINE PHENCYCLIDINE < 25 (25ng/ml)
[2017-10-18 00:03] LABS: BILIRUBIN NEGATIVE (NEGATIVE); BLOOD NEGATIVE (NEGATIVE); CLARITY CLEAR (CLEAR); COLOR YELLOW (YELLOW); GLUCOSE NEGATIVE (NEGATIVE); KETONE NEGATIVE (NEGATIVE); LEUKO ESTERASE NEGATIVE (NEGATIVE); NITRITE NEGATIVE (NEGATIVE); PH 5.5 (5.0-9.0); SPECIFIC GRAVITY <= 1.005 (1.005-1.030)
[2017-10-18 00:16] LABS: URIC ACID CRYSTALS 1+
== END 2017-10-18 06:37 | disposition left against medical advice (07) ==
LOC: ED 08:03
PROVIDERS: Emergency Medicine
DX: F10.129 Alcohol abuse with intoxication, unspecified (principal); R45.851 Suicidal ideations; F17.200 Nicotine dependence, unspecified, uncomplicated

== ENCOUNTER → 2017-10-23 | Outpatient (CLI) | payer MEDICAID ==
--- NOTE | ~2017-10-23 | PF ---
[place], [place] PULMONARY FUNCTION TEST NAME: CHRISTOFER GIRON UNIT #: [id number] ROOM: DOCTOR: GARRETT ANDREWS MD,DEBBI BIRTHDATE: [birth year] DOS: 10/23/2017 ORDERED BY: Misti Bolivar. HISTORY: A 57-year-old male, height of 68 inches, weight of 250 pounds, BMI 38. The testing was done for assessment of diagnosis of COPD with ongoing symptoms of dyspnea with exertion, productive cough, frequent wheezing, chronic tobacco use of 40 pack years of noted as 1 pack of cigarettes per day active use. SPIROMETRY: The FVC was recorded as 3.85 liters at 85% predicted value normal. FEV1 was recorded 2.45 liters at 71% of the predicted value normal as well. Ratio of FEV1/FVC recorded post-bronchodilator is 62%. No changes occurred postbronchodilator administration. The flow volume loop was suggestive of obstructive airway pattern. The spirometry is consistent with mild COPD findings. LUNG VOLUMES: Thoracic gas volume recorded at 85%, residual volume of 99%, total lung capacity 93%. Lung volume noted normal. Lung diffusion recorded at 78%, which is low normal. The patient's resistance and passive conductance noted mildly abnormal, partial improvement post-bronchodilator test. FINAL IMPRESSION: The test was noted consistent with diagnosis of mild chronic obstructive pulmonary disease. DEBBI TUCKER MD CM:PFREPORT:PULMONARY FUNCTION TEST 1322 [id number] DEBBI ANDREWS MD
[2017-10-23 08:56] LABS: BASO % 0.6 % (0.0-1.0); EOS # 0.4 10*3/uL (0.0-0.4); EOS % 6.6 % (1.0-4.0); HEMATOCRIT 37.4 % (42.0-52.0); HEMOGLOBIN 12.6 g/dl (14.0-18.0); LYMPH # 1.2 10*3/uL (1.3-4.4); LYMPH % 19.6 % (27.0-41.0); MEAN CELL VOLUME 107.5 fl (80.0-94.0); MEAN CORPUSCULAR HGB 36.2 pg (27.0-31.0); MEAN CORPUSCULAR HGB CONC 33.7 g/dl (33.0-37.0); MONO # 0.7 10*3/uL (0.1-1.0); MONO % 11.2 % (3.0-9.0); NEUT # 3.9 10*3/uL (2.3-7.9); NEUT % 61.7 % (47.0-73.0); PLATELET COUNT AUTOMATED 117 10*3/uL (130-400); RED BLOOD COUNT 3.48 10*6/uL (4.50-5.90); RED CELL DISTRI WIDTH 14.1 % (0-14.5); WHITE BLOOD COUNT 6.3 10*3/uL (4.8-10.8)
[2017-10-23 09:35] LABS: ALBUMIN 3.4 gm/dl (3.1-4.5); ALKALINE PHOSPHATASE 92 U/L (45-117); BUN 14 mg/dl (7-24); CHLORIDE 103 mmol/L (98-107); CREATININE 0.86 mg/dL (0.70-1.30); POTASSIUM 3.7 mmol/L (3.5-5.1); SGOT/AST 100 IU/L (3-35); SGPT/ALT 51 U/L (12-78); SODIUM 138 mmol/L (136-145); TOTAL PROTEIN 8.3 gm/dL (6.4-8.2)
== END | disposition home or self-care (01) ==
LOC: LAB 06:57
PROVIDERS: Physician Assistant
DX: Z01.818 Encounter for other preprocedural examination (principal); R06.02 Shortness of breath; I10 Essential (primary) hypertension; J44.9 Chronic obstructive pulmonary disease, unspecified; R94.31 Abnormal electrocardiogram [ECG] [EKG]; M25.552 Pain in left hip; M19.91 Primary osteoarthritis, unspecified site; F17.200 Nicotine dependence, unspecified, uncomplicated; R79.89 Other specified abnormal findings of blood chemistry

== ENCOUNTER 2017-12-14 14:52 | Emergency (ER) | payer MEDICAID ==
[~2017-12-14] VITALS: Ht 175.2 cm; Wt 90.7 kg
[2017-12-14 16:56] LABS: BASO # 0.1 10*3/uL (0.0-0.1); BASO % 1.4 % (0.0-1.0); EOS # 0.4 10*3/uL (0.0-0.4); HEMOGLOBIN 13.4 g/dl (14.0-18.0); LYMPH # 2.3 10*3/uL (1.3-4.4); LYMPH % 39.1 % (27.0-41.0); MEAN CELL VOLUME 100.5 fl (80.0-94.0); MEAN CORPUSCULAR HGB 34.5 pg (27.0-31.0); MEAN CORPUSCULAR HGB CONC 34.4 g/dl (33.0-37.0); MEAN PLATELET VOLUME 9.8 fl (9.6-12.3); MONO # 0.5 10*3/uL (0.1-1.0); MONO % 9.1 % (3.0-9.0); NEUT # 2.6 10*3/uL (2.3-7.9); NEUT % 44.2 % (47.0-73.0); PLATELET COUNT AUTOMATED 243 10*3/uL (130-400); RED BLOOD COUNT 3.88 10*6/uL (4.50-5.90); RED CELL DISTRI WIDTH 13.2 % (0-14.5); WHITE BLOOD COUNT 5.9 10*3/uL (4.8-10.8)
[2017-12-14 17:13] LABS: ALBUMIN 3.9 gm/dl (3.1-4.5); ALKALINE PHOSPHATASE 99 U/L (45-117); BUN 14 mg/dl (7-24); CHLORIDE 106 mmol/L (98-107); CREATININE 0.83 mg/dL (0.70-1.30); LIPASE 153 U/L (73-393); POTASSIUM 4.3 mmol/L (3.5-5.1); SGOT/AST 25 IU/L (3-35); SGPT/ALT 20 U/L (12-78); SODIUM 140 mmol/L (136-145); TOTAL PROTEIN 8.7 gm/dL (6.4-8.2)
[2017-12-14 17:22] LABS: ACETAMINOPHEN (TYLENOL) < 2.0 ug/ml (10-30); TROPONIN I < 0.015 ng/ml (<0.045)
[2017-12-14 21:47] LABS: BILIRUBIN NEGATIVE (NEGATIVE); BLOOD NEGATIVE (NEGATIVE); CLARITY SL CLOUDY (CLEAR); COLOR YELLOW (YELLOW); GLUCOSE NEGATIVE (NEGATIVE); KETONE NEGATIVE (NEGATIVE); LEUKO ESTERASE NEGATIVE (NEGATIVE); NITRITE NEGATIVE (NEGATIVE); SPECIFIC GRAVITY >= 1.030 (1.005-1.030); UROBILINOGEN 0.2 E.U./dl (0.2-1.0)
[2017-12-14 21:52] LABS: URINE AMPHETAMINES < 1000 (1000ng/ml); URINE BARBITURATES < 200 (200ng/ml); URINE BENZODIAZEPINES < 200 (200ng/ml); URINE CANNABINOIDS (THC) < 50 (50ng/ml); URINE COCAINE < 300 (300ng/ml); URINE METHADONE < 300 (300ng/ml); URINE OPIATES < 300 (300ng/ml)
[2017-12-14 21:54] LABS: EPITHELIAL CELLS 0-2; RBC 0-2 rbc/hpf (0-2)
[2017-12-14 21:55] LABS: BACTERIA 3+
[2017-12-14 22:01] LABS: URINE PHENCYCLIDINE < 25 (25ng/ml)
== END 2017-12-15 02:50 | disposition home or self-care (01) ==
LOC: ED 14:52
PROVIDERS: Emergency Medicine
DX: F10.129 Alcohol abuse with intoxication, unspecified (principal); F14.10 Cocaine abuse, uncomplicated; G89.29 Other chronic pain; M25.552 Pain in left hip; F32.9 Major depressive disorder, single episode, unspecified; I10 Essential (primary) hypertension; E66.9 Obesity, unspecified; F41.9 Anxiety disorder, unspecified; J44.9 Chronic obstructive pulmonary disease, unspecified; Z98.890 Other specified postprocedural states; Z79.899 Other long term (current) drug therapy; Y90.9 Presence of alcohol in blood, level not specified

== ENCOUNTER 2018-02-09 13:59 | Inpatient (IN) | payer MEDICAID ==
[~2018-02-09] VITALS: Ht 172.7 cm; Wt 111.1 kg
--- NOTE | ~2018-02-09 | WRIGHTHP ---
[place], [place] PATIENT HISTORY AND PHYSICAL EXAM NAME: CHRISTOFER GIRON UNIT #: [id number] ROOM: 312 DOCTOR: JAYLIN DYSON MD BIRTHDATE: [birth year] DOS: 02/10/2018 CHIEF COMPLAINT: "I have just been feeling so depressed doc, I need your help." SUMMARY OF THE VISIT: The patient was interviewed first in the hallways, he was wheeling himself to his room and then later as he got into his room. He reports he is here because he went to the emergency room to be part of [facility] and get detoxification from alcohol; however, upon evaluation in [facility], he expressed ongoing major depressive symptomatology with poor sleep and appetite, anergia, anhedonia, hopeless, helpless feelings, crying spells, and inability to cope. Additionally, he voiced strong suicidal ideation with a plan to overdose on heroin or find some other way to kill himself. He reports if he does not get help, he will end his life and feels he needs help both with mental health issues and drug issues. He also notes some confusion and was found to be somewhat of a poor historian while in [facility] assessment. He is admitted now to rule out organic factors, to stabilize on medication, to engage in individual and lara milieu activity determining the least restrictive environment poor post-discharge. PAST MEDICAL HISTORY: Remarkable for blindness in his right eye, anemia, chronic left hip pain, both alcohol dependence and cocaine abuse, hypertension, first degree AV block, folate deficiency, GI bleed, hep C, thrombocytopenia, and vitamin D deficiency. The patient does report drinking 1 liter of rum daily. He does abuse cocaine episodically and has been a cigarette smoker for 40+ years. STRENGTHS: Good verbal skills, willingness to seek help and a supportive family network. WEAKNESSES: Significant coping skill issues and substance abuse. MENTAL STATUS: He is alert and oriented with time gaps. There is some confusion and processing slowness noted. He is very depressed and his affect is flat, blunted, and constricted. He endorses multiple neurovegetative symptoms and positive suicidal thoughts with a plan. There is no homicidal thoughts, self-injurious thoughts. There is no camden, hypomania. There are no auditory or visual hallucinations, delusions or paranoia. Short-term memory has gaps. DIAGNOSES: Major depression, recurrent, severe; alcohol dependence; cocaine dependence. PLAN: I have already started him on Remeron 15 mg at bedtime. Screening examination showed him to have a high ammonia level of 65 and I will prescribe lactulose 30 grams twice daily and monitor. Vitamin D level was low at 12.9, so I will write for vitamin D 50,000 international units weekly and his B12 is low normal at 315, so I will write for vitamin B12 injection 1000 mcg IM now and monthly. We will engage in individual and lara milieu activity, returning to the least restrictive environment when psychiatrically stable. [place], [place] PATIENT HISTORY AND PHYSICAL EXAM NAME: CHRISTOFER GIRON UNIT #: [id number] ROOM: 312 DOCTOR: JAYLIN DYSON MD BIRTHDATE: [birth year] JAYLIN DYSON MD CM:HISPHYS:PATIENT HISTORY AND PHYSICAL EXAMINATION 1029 JAYLIN DYSON MD 02/10/18 1028 interface
--- NOTE | ~2018-02-09 | PR ---
[place], [place] PROGRESS NOTE NAME: CHRISTOFER GIRON UNIT #: [id number] ROOM: 312 DOCTOR: JAYLIN DYSON MD BIRTHDATE: [birth year] DOS: 02/11/2018 CHIEF COMPLAINT: "I still didn't sleep well. I woke up a lot." SUMMARY OF THE VISIT: The patient was interviewed in the dining area where he was sitting at the table and sitting in the wheelchair. He engaged in conversation, reporting to me that he does feel better, but is still having issues with sleep, specifically sleep continuity disturbance. His appetite is good and otherwise he is noting no side effects of withdrawal. MENTAL STATUS: He is alert and oriented. Mood does seem to be somewhat depressed with anxious overtones, but improving. There is no overt hypomania or camden. There are no overt auditory or visual hallucinations. No delusions, no paranoia. Short term, intermediate, and long-term memory are intact. PLAN: I will adjust his Remeron from 15 to 22.5 mg at bedtime and augment with Seroquel 100 mg at bedtime. Continue to engage in individual and lara milieu activity, returning to the least restrictive environment when psychiatrically stable. JAYLIN DYSON MD CM:PNTRANS [id number] JAYLIN DYSON MD 02/12/18 0000 interface
--- NOTE | ~2018-02-09 | PR ---
[place], [place] PROGRESS NOTE NAME: CHRISTOFER GIRON UNIT #: [id number] ROOM: 312 DOCTOR: JAYLIN DYSON MD BIRTHDATE: [birth year] DOS: 02/12/2018 CHIEF COMPLAINT: "I have an appointment with my outpatient psychiatrist, can I go now?" SUMMARY OF THE VISIT: The patient was interviewed in the rod twice, both times, he was fixated on being able to leave the hospital today. He stated to me that he has an appointment with his outpatient psychiatrist today, although he was not able to give me the name of the psychiatrist. He very much stated that he wanted to leave, so that he can follow up with this appointment. This even after I told him that if I had him stabilized on medication, he would leave here with at least a 1 month supply of medication. Overall, he has been compliant with his meds, although yesterday and today, he has been pushing somewhat for pain med intervention. He is tolerating the current medication regimen well and I see no sedation, somnolence, extrapyramidal symptoms or tardive dyskinesia. MENTAL STATUS: He is alert and oriented with some minor time gaps, but fairly intact. Mood does seem to be trending towards euthymia. Affect is more appropriate. There is no camden, hypomania or gross psychosis. Short, intermediate and long-term memory for the most part are intact. PLAN: I will increase his daytime Seroquel to 25 mg b.i.d. and maintain the 100 at bedtime. This as a nonaddicting mood stabilizer and antianxiety agent. Engage in individual and lara milieu activity, returning to the least restrictive environment when psychiatrically stable. JAYLIN DYSON MD CM:PNTRANS [phone] 25 JAYLIN DYSON MD 02/12/182224 interface
--- NOTE | ~2018-02-09 | DS ---
[place], [place] DISCHARGE SUMMARY NAME: CHRISTOFER GIRON UNIT #: [id number] ROOM: 312 DOCTOR: JAYLIN DYSON MD BIRTHDATE: [birth year] DOS: 02/13/2018 CHIEF COMPLAINT: "I have just been feeling so depressed Doc, I need your help. HISTORY OF PRESENT ILLNESS: This is a 57-year-old white male known to me from a previous admission here to the [facility]. The patient was sent by [facility] to the Emergency Room to be evaluated. He had gone to [facility] to seek detox from alcohol; however, upon evaluation in [facility], he expressed ongoing major depressive symptomatology with poor sleep and appetite, anergia, anhedonia, hopeless, helpless feelings, crying spells, and inability to cope. He also admitted to strong suicidal ideation with a plan to overdose on heroin or find some other way to kill himself. He did report if he did not get help, he would end his life and was willing to come into the hospital. The patient was admitted involuntarily by the Emergency Room physicians, so that he could be detoxed and also received a medication that he would need to mittal the depression. He was admitted also to rule out organic factors, to stabilize on medication, to engage in individual and lara milieu activity. PAST MEDICAL HISTORY: Remarkable for blindness in his right eye, anemia, chronic left hip pain, alcohol dependence, cocaine abuse, hypertension, first degree AV block, folic acid deficiency, GI bleed, hepatitis C, thrombocytopenia, vitamin D deficiency. The patient reports drinking at least 1 liter of rum daily. He abuses cocaine episodically and he has been a cigarette smoker for 40+ years. STRENGTHS: Good verbal skills, willingness to seek help, supportive family. WEAKNESSES: Significant coping issues and polysubstance use dependence. SUMMARY OF THE HOSPITAL COURSE: The patient was admitted to the unit where screening examination showed him to have an elevated ammonia level of 65, so he was started on lactulose 30 grams twice daily. His vitamin D level was also low at 12.9, so he was given vitamin D 50,000 International Units weekly. Vitamin B12 level was low normal at 315, so he was given vitamin B12 injection of 1000 mcg IM. For his depression, he was started on Remeron 15 mg at bedtime. This dose was adjusted to 22.5 mg at bedtime. With this medication combination, he did improve. The patient was sent here on an involuntary basis. He believed that his voluntary stay was over on 02/12/2018 and demanded to leave. When I did tell him that I did not feel comfortable yet because I was still assessing lethality, he did get somewhat upset, but did redirect and calm. Over the next 24 hours, he was able to maintain his composure, did voice positive plans for the future and wanted to be able to develop coping skills to function more normally in society. The patient was ultimately discharged on 02/13/2018 back to home. He reports he does have followup already with comprehensive psychiatric services in [place]. MENTAL STATUS AT DISCHARGE: He is alert and oriented. Mood does seem to be trending towards euthymia. Affect is appropriate. There is no camden, hypomania or psychosis. Memory for the most part is intact. [place], [place] DISCHARGE SUMMARY NAME: CHRISTOFER GIRON UNIT #: [id number] ROOM: [facility] DOCTOR: JAYLIN DYSON MD BIRTHDATE: [birth year] DIAGNOSES: Major depression, recurrent, severe and alcohol dependence and cocaine abuse. JAYLIN DYSON MD CM:DISCHARG [id number] JAYLIN DYSON MD 02/13/18 1400 interface
[2018-02-09 14:00] VITALS: BP 116/74
[2018-02-09 14:18] LABS: BASO % 0.6 % (0.0-1.0); EOS # 0.4 10*3/uL (0.0-0.4); EOS % 6.3 % (1.0-4.0); HEMATOCRIT 37.8 % (42.0-52.0); HEMOGLOBIN 12.9 g/dl (14.0-18.0); LYMPH # 1.4 10*3/uL (1.3-4.4); LYMPH % 21.6 % (27.0-41.0); MEAN CELL VOLUME 99.7 fl (80.0-94.0); MEAN CORPUSCULAR HGB CONC 34.1 g/dl (33.0-37.0); MONO # 0.5 10*3/uL (0.1-1.0); MONO % 7.2 % (3.0-9.0); NEUT # 4.3 10*3/uL (2.3-7.9); PLATELET COUNT AUTOMATED 178 10*3/uL (130-400); RED BLOOD COUNT 3.79 10*6/uL (4.50-5.90); RED CELL DISTRI WIDTH 12.8 % (0-14.5); WHITE BLOOD COUNT 6.7 10*3/uL (4.8-10.8)
[2018-02-09 14:31] LABS: ALKALINE PHOSPHATASE 104 U/L (45-117); BUN 17 mg/dl (7-24); CHLORIDE 101 mmol/L (98-107); CREATININE 1.04 mg/dL (0.70-1.30); POTASSIUM 4.2 mmol/L (3.5-5.1); SGOT/AST 100 IU/L (3-35); SGPT/ALT 63 U/L (12-78); SODIUM 137 mmol/L (136-145); TOTAL PROTEIN 8.3 gm/dL (6.4-8.2)
[2018-02-09 14:33] LABS: ETHYL ALCOHOL < 3.0 mg/dl (<3)
[2018-02-09 14:41] LABS: ACETAMINOPHEN (TYLENOL) < 2.0 ug/ml (10-30)
[2018-02-09 15:12] VITALS: BP 97/55
[2018-02-09 15:15] LABS: BILIRUBIN NEGATIVE (NEGATIVE); BLOOD NEGATIVE (NEGATIVE); CLARITY SL CLOUDY (CLEAR); COLOR YELLOW (YELLOW); GLUCOSE NEGATIVE (NEGATIVE); KETONE TRACE (NEGATIVE); LEUKO ESTERASE NEGATIVE (NEGATIVE); NITRITE NEGATIVE (NEGATIVE)
[2018-02-09 15:23] LABS: URINE AMPHETAMINES < 1000 (1000ng/ml); URINE BARBITURATES < 200 (200ng/ml); URINE BENZODIAZEPINES < 200 (200ng/ml); URINE CANNABINOIDS (THC) < 50 (50ng/ml); URINE COCAINE > 300 (300ng/ml); URINE METHADONE < 300 (300ng/ml); URINE OPIATES < 300 (300ng/ml)
[2018-02-09 15:25] LABS: BACTERIA 2+; MUCOUS TRACE; RBC 0-2 rbc/hpf (0-2)
[2018-02-09 15:27] LABS: URINE PHENCYCLIDINE < 25 (25ng/ml)
[2018-02-09 17:01] VITALS: BP 117/69
[2018-02-09 18:05] VITALS: BP 130/90
[2018-02-09 20:11] VITALS: BP 130/90
[2018-02-09 23:00] VITALS: BP 128/88
[2018-02-10 03:00] VITALS: BP 112/62
[2018-02-10 06:42] LABS: BASO % 0.5 % (0.0-1.0); EOS # 0.6 10*3/uL (0.0-0.4); EOS % 10.4 % (1.0-4.0); HEMATOCRIT 34.8 % (42.0-52.0); HEMOGLOBIN 11.7 g/dl (14.0-18.0); LYMPH # 1.7 10*3/uL (1.3-4.4); MEAN CELL VOLUME 100.9 fl (80.0-94.0); MEAN CORPUSCULAR HGB 33.9 pg (27.0-31.0); MEAN CORPUSCULAR HGB CONC 33.6 g/dl (33.0-37.0); MEAN PLATELET VOLUME 10.9 fl (9.6-12.3); MONO # 0.4 10*3/uL (0.1-1.0); MONO % 7.1 % (3.0-9.0); NEUT # 3.3 10*3/uL (2.3-7.9); NEUT % 53.7 % (47.0-73.0); PLATELET COUNT AUTOMATED 154 10*3/uL (130-400); RED BLOOD COUNT 3.45 10*6/uL (4.50-5.90); WHITE BLOOD COUNT 6.2 10*3/uL (4.8-10.8)
[2018-02-10 07:11] LABS: ALBUMIN 3.3 gm/dl (3.1-4.5); BUN 17 mg/dl (7-24); CHLORIDE 104 mmol/L (98-107); POTASSIUM 4.1 mmol/L (3.5-5.1); SODIUM 139 mmol/L (136-145)
[2018-02-10 07:16] LABS: ACT PARTIAL THROMBO TIME 24.2 SECONDS (20.8-31.5); INTERNATIONAL NORM RATIO 1.1 (2.0-3.5)
[2018-02-10 07:17] LABS: ALKALINE PHOSPHATASE 88 U/L (45-117); CHOLESTEROL 120 mg/dL (<200); HDL CHOLESTEROL 62 mg/dl (40-60); LDL CHOLESTEROL 52 mg/dL (9-159); PHOSPHOROUS 3.6 mg/dL (2.5-4.9); SGOT/AST 69 IU/L (3-35); SGPT/ALT 53 U/L (12-78); TOTAL PROTEIN 7.1 gm/dL (6.4-8.2); TRIGLYCERIDES 30 mg/dl (<150); VLDL CHOLESTEROL 6 mg/dL (6-40)
[2018-02-10 08:01] VITALS: BP 125/65
[2018-02-10 08:15] LABS: VITAMIN D, 25-HYDROXY 12.9 ng/mL (30-100)
[2018-02-10 14:00] VITALS: BP 118/86
[2018-02-10 16:51] VITALS: BP 118/78
[2018-02-10 20:35] VITALS: BP 129/67
[2018-02-10 20:44] VITALS: BP 96/59
[2018-02-11 07:59] VITALS: BP 131/75
[2018-02-11 20:02] VITALS: BP 112/69
[2018-02-12 07:44] VITALS: BP 140/82
[2018-02-12 19:50] VITALS: BP 143/85
[2018-02-13 08:06] VITALS: BP 128/83
[2018-02-13] MEDS ORDERED: Vitamin D PO (12:48)
[2018-02-13] MEDS ORDERED: LACTULOSE20 GM/30 M PO (12:48)
[2018-02-13] MEDS ORDERED: MIRTAZAPINE15 M2 PO (12:48)
[2018-02-13] MEDS ORDERED: QUETIAPINE FUMA25 MG PO (12:48)
[2018-02-13] MEDS ORDERED: QUETIAPINE FUM100 M3 PO (12:48)
== END 2018-02-13 16:56 | disposition home or self-care (01) | DRG 885 ==
LOC: ED 13:59 → 3N 17:41
PROVIDERS: Internal Medicine; Nurse Practitioner Family; Psychiatry & Neurology Psychiatry
DX: F33.2 Major depressive disorder, recurrent severe without psychotic features (principal); R45.851 Suicidal ideations; E66.01 Morbid (severe) obesity due to excess calories; F14.20 Cocaine dependence, uncomplicated; F10.20 Alcohol dependence, uncomplicated; H54.40 Blindness, one eye, unspecified eye; M25.552 Pain in left hip; G89.29 Other chronic pain; I10 Essential (primary) hypertension; F17.210 Nicotine dependence, cigarettes, uncomplicated; R45.850 Homicidal ideations; B18.2 Chronic viral hepatitis C; H81.10 Benign paroxysmal vertigo, unspecified ear; G47.00 Insomnia, unspecified; R74.0 Nonspecific elevation of levels of transaminase and lactic acid dehydrogenase [LDH]; E53.8 Deficiency of other specified B group vitamins; E55.9 Vitamin D deficiency, unspecified; F41.9 Anxiety disorder, unspecified; R26.81 Unsteadiness on feet; F19.10 Other psychoactive substance abuse, uncomplicated; D53.9 Nutritional anemia, unspecified; Z68.37 Body mass index [BMI] 37.0-37.9, adult; Z79.899 Other long term (current) drug therapy; Z83.3 Family history of diabetes mellitus; Z82.49 Family history of ischemic heart disease and other diseases of the circulatory system

== ENCOUNTER → 2018-02-23 | Outpatient (CLI) | payer MEDICAID ==
[~2018-02-23] MED LIST changes: +LACTULOSE20 GM/30 M PO; +QUETIAPINE FUM100 M3 PO; +QUETIAPINE FUMA25 MG PO; +Vitamin D PO
== END | disposition home or self-care (01) ==
LOC: ORTHO 04:15
DX: Z47.89 Encounter for other orthopedic aftercare (principal); M51.37 Other intervertebral disc degeneration, lumbosacral region; M16.12 Unilateral primary osteoarthritis, left hip; I10 Essential (primary) hypertension; J44.9 Chronic obstructive pulmonary disease, unspecified

== ENCOUNTER → 2018-03-30 | Outpatient (CLI) | payer MEDICAID | END | disposition home or self-care (01) | LOC: ORTHO 03:53 | DX: Z22.322 Carrier or suspected carrier of Methicillin resistant Staphylococcus aureus (principal) ==